=== PATIENT | male | born 1995 | race Caucasian/White ===

== ENCOUNTER 2022-11-08 01:16 | Emergency (ER) | payer OTHER ==
[~2022-11-08 01:16] MED LIST: LIDOCAINE/EPINEPHR/TETRACAINE 5 ML BOTTLE TOPICAL ONE
[2022-11-08 01:24] VITALS: BP 135/90; PULSE 18; RESP 80; TEMP 98
[2022-11-08] MEDS ORDERED: LIDOCAINE 1% PF 10 MG/ML (5 ML AMP) SQ ONE (01:24)
[2022-11-08] MEDS ORDERED: CEPHALEXIN 500 MG CAP PO STA (01:40)
[2022-11-08] MEDS ORDERED: CEPHALEXIN 500MG STARTER PACK 4 CAP BTL PO STA (01:40)
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
== END 2022-11-08 01:50 | disposition home or self-care (01) ==
LOC: EC 01:16
DX: S61.216A Laceration without foreign body of right little finger without damage to nail, initial encounter (principal); W26.0XXA Contact with knife, initial encounter; Y92.009 Unspecified place in unspecified non-institutional (private) residence as the place of occurrence of the external cause
CPT/HCPCS: 12001; 99283; J2001

== ENCOUNTER 2023-10-10 02:47 | Emergency (ER) | payer OTHER ==
[2023-10-10 03:06] VITALS: BP 135/95; PULSE 99; RESP 18; TEMP 98.8
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
== END 2023-10-10 03:26 | disposition home or self-care (01) ==
LOC: EC 02:47
DX: M54.2 Cervicalgia (principal); V89.2XXA Person injured in unspecified motor-vehicle accident, traffic, initial encounter; Y92.411 Interstate highway as the place of occurrence of the external cause; Z90.49 Acquired absence of other specified parts of digestive tract
CPT/HCPCS: 99283